=== PATIENT | female | born 1985 | race Caucasian/White ===

== ENCOUNTER 2017-05-29 12:55 | Inpatient (IN) | payer OTHER ==
[~2017-05-29 12:55] MED LIST: ELECTROLYTE-148 SOLN 1,000 ML IV SCH
[2017-05-29 13:33] VITALS: BMI 27.0
[2017-05-29] MEDS ORDERED: ceFAZolin SODIUM 1 GM VIAL ONE (14:02)
[2017-05-29] MEDS ORDERED: morphine SULFATE/Preservative Free 0.5 MG/ML (1cc Syringe) ONE (14:03)
[2017-05-29] MEDS ORDERED: ePHEDrine SULFATE 50 MG/1 ML AMPULE ONE (14:16)
[2017-05-29] MEDS ORDERED: OXYTOCIN 20 UNITS in 0.9% NS 20 UNIT/1,000 ML INFUS.BAG IV SCH (14:25)
[2017-05-29] MEDS ORDERED: OXYTOCIN 10 UNITS/ML VIAL ONE ×2 (14:27→14:52)
--- NOTE | 2017-05-29 15:01 | HP ---
Past Medical History - Primary Care Physician PCP:: Mario Grubbs - Admission Chief Complaint: 39 weeks , previous c/s , request of repeat c/s History of Present Illness: 32 yo f edc by sono 06/02 17 39 weeks with previous c/s request of repeat c/s , , cx clp, vx -3 ,mi , fhr cat 1, rba discussed , explained History Source: Patient Limitations to Obtaining History: Language Barrier - Past Medical History ...: 2 ...Para: 1 ...Term: 1 ...: 0 ...Spon : 0 ...Induced : 0 ...Multiple Gestation: 0 ...LMP: 08/30/16 ... Weeks Gestation by Dates: 38.6 ...EDC by Dates: 06/06/17 ...EDC by Sono: 06/02/17 - Past Surgical History Past Surgical History: Yes: Hx Myomectomy: No Hx Transabdominal Cerclage: No - Smoking History Smoking history: Never smoked - Alcohol/Substance Use Hx Alcohol Use: No History of Substance Use: reports: None - Social History Usual Living Arrangement: Yes: With Spouse History of Recent Travel: No Home Medications - Allergies Allergies/Adverse Reactions: Allergies Allergy/AdvReac Type Severity Reaction Status Date / Time No Known Allergies Allergy Verified 05/29/17 14:33 Review of Systems - Review of Systems Constitutional: reports: No Symptoms Eyes: reports: No Symptoms HENT: reports: No Symptoms Neck: reports: No Symptoms Cardiovascular: reports: No Symptoms Respiratory: reports: No Symptoms Gastrointestinal: reports: No Symptoms Genitourinary: reports: No Symptoms Breasts: reports: No Symptoms Reported Musculoskeletal: reports: No Symptoms Integumentary: reports: No Symptoms Neurological: reports: No Symptoms Endocrine: reports: No Symptoms Hematology/Lymphatic: reports: No Symptoms Psychiatric: reports: No Symptoms Physical Exam - Maternity Vital Signs: Vital Signs Temperature 98.1 F 05/29/17 13:21 Pulse Rate 93 H 05/29/17 13:21 Respiratory Rate 17 05/29/17 13:21 Blood Pressure 107/68 05/29/17 13:21 O2 Sat by Pulse Oximetry (%) Constitutional: Yes: Well Nourished, No Distress, Calm Eyes: Yes: WNL, Conjunctiva Clear, EOM Intact HENT: Yes: WNL, Atraumatic, Normocephalic Neck: Yes: WNL, Supple, Trachea Midline Cardiovascular: Yes: WNL, Regular Rate and Rhythm Breast(s): Yes: WNL - Abdominal Exam/OB Number of Fetuses: Single Presentation: Vertex Contractions: Yes Regularity: Irregular Intensity: Mild Monitor Mode: External Heart Rate Location: [facility] Category: I Accelerations: Uniform - Vaginal Exam/OB Vaginal Bleediing: No Dilatation (cm): 0 Effacement (%): 0 Amniotic Membrane Status: Intact Station: -3 - Physical Exam Edema: Yes Edema: LLE: Trace, RLE: Trace Deep Tendon Reflex Grade: Normal +2 Problem List - Problems (1) with 39 completed weeks gestation Code(s): Z3A.39 - 39 WEEKS GESTATION OF (2) Previous section Code(s): Z98.891 - HISTORY OF UTERINE SCAR FROM PREVIOUS SURGERY Assessment/Plan repeat c/s ,rba discussed
[2017-05-29] MEDS ORDERED: DEXAMETHASONE SOD PHOSPHATE 4 MG/1 ML VIAL ONE (15:03)
--- NOTE | 2017-05-29 15:52 | OP ---
DATE OF OPERATION: 05/29/2017 PREOPERATIVE DIAGNOSIS: , 39 weeks, previous section, requests a repeat section. POSTOPERATIVE DIAGNOSIS: , 39 weeks, previous section, requests a repeat section. PROCEDURE: Repeat low-segment transverse section. SURGEON: Aggie Grubbs MD COMPACTING MACHINE OPERATOR/TENDER: THOMAS Chao ANESTHESIA: Spinal. ANESTHESIOLOGIST: Casimiro Olmos MD ESTIMATED BLOOD LOSS: 500 mL FINDING: A live baby boy, Apgars 9 and 9, ROT position. OPERATING COURSE: Patient was taken to the operating room. Under adequate spinal anesthesia, abdomen and perineum were prepped and draped. Pfannenstiel abdominal skin incision was made. The abdominal wall was cut layer by layer until peritoneum was exposed and incised. There were some omental adhesions to the peritoneum which were lysed. Then, the lower uterine segment was identified and uterovesical fold of peritoneum established. Bladder was pushed down. Then, with the lower blade of the [place] retractor in the pelvis, a low transverse uterine incision was made. Incision extended laterally with bandage scissors. Amniotic sac was entered, clear fluid. Head delivered. Nasopharynx was suctioned, and live baby boy was delivered without any difficulty. Placenta was delivered manually. Uterine cavity was cleaned of all remaining tissue. Uterine incision was closed in 2 layers, first layer with 0 Biosyn continuous suture, then the second layer with 0 Biosyn imbricating the first layer. Bladder flap was closed with 0 Biosyn continuous suture. Both tubes and ovaries were checked, were normal. No active bleeding was seen. All the lap pads, sponge, and instrument counts were correct. Then, peritoneum was closed with 0 Biosyn continuous suture. Muscles were brought together with interrupted suture of 0 Biosyn. Fascia was closed with 0 Biosyn continuous suture, subcutaneous fat with interrupted suture of 0 Biosyn, and the skin was closed with mario. Patient tolerated the procedure well, left the OR in good condition. AGGIE GRUBBS M.D. /[id number]
[2017-05-29] MEDS ORDERED: morphine SULFATE/Preservative Free 0.5 MG/ML (1cc Syringe) SPIN ONE (16:45)
[2017-05-29] MEDS: ONDANSETRON 4 MG/2 ML VIAL IVPUSH PRN ×2 (18:00→22:17)
--- NOTE | 2017-05-30 07:17 | PN ---
Progress Note (short form) - Note Progress Note: pod 1, s/p repeat c/s doing well, no c/o Last Vital Signs Temp Pulse Resp BP Pulse Ox 98.5 F 88 20 105/60 97 05/30/17 05:00 05/30/17 05:00 05/30/17 06:00 05/30/17 05:00 05/29/17 19:10 abdomen soft, no distension, no cva incision dry, clean no calf tenderness plan ambulate , cbc advance diet Problem List - Problems (1) with 39 completed weeks gestation Code(s): Z3A.39 - 39 WEEKS GESTATION OF (2) Previous section Code(s): Z98.891 - HISTORY OF UTERINE SCAR FROM PREVIOUS SURGERY
[2017-05-30] MEDS: ENOXAPARIN NA (PORCINE) 40 MG/0.4 ML DISP.SYRIN SQ SCH (09:07)
[2017-05-30] MEDS: IBUPROFEN 600 MG TABLET (FP) PO PRN ×2 (11:49→21:05)
[2017-05-30] MEDS: ACETAMINOPHEN 325 MG TABLET (FP) PO PRN ×2 (11:51→21:06)
--- NOTE | 2017-05-30 14:57 | PN ---
Progress Note (short form) - Note Progress Note: Anesthesia post op note, POD#1, S/P under spinal with duramorph. Pat seen and examined. VSS.Pain well controlled,ambulating. No apparent post anesthesia complications. Signed off.
[2017-05-31] MEDS: IBUPROFEN 600 MG TABLET (FP) PO PRN ×4 (01:16→22:10)
[2017-05-31] MEDS: ACETAMINOPHEN 325 MG TABLET (FP) PO PRN ×4 (01:17→22:10)
--- NOTE | 2017-05-31 08:43 | PN ---
Post Progress Note - Subjective Subjective: c/o pain scale 5/10 voiding without difficulty Post Day: 2 Type of Delivery: Repeat C/S Vital Signs: Vital Signs Temperature 98.5 F 05/30/17 22:00 Pulse Rate 82 05/30/17 22:00 Respiratory Rate 20 05/30/17 22:00 Blood Pressure 107/71 05/30/17 22:00 O2 Sat by Pulse Oximetry (%) 98 05/30/17 21:00 Breast Exam: Yes: Soft, Other (attempting BF ). No: Engorged Uterus: Yes: Fundus Firm, Fundus below umbilicus, Non-tender Incision: Yes: [place] intact. No: Redness, Oozing Abdomen/GI: Yes: Abdomen soft, Passing flatus (bm not done ), Tolerating PO ( diet ). No: Abdominal Distention, Tender Lochia: Yes: Rubra Lochia, amount: Moderate Extremities: Yes: Calves non-tender Perineum: Yes: Intact Activity: Ambulating Assessment/Plan po c/s day #2 . po labs pending pt requests for discharge tomorrow.
[2017-05-31] MEDS: ENOXAPARIN NA (PORCINE) 40 MG/0.4 ML DISP.SYRIN SQ SCH (09:16)
[2017-05-31] MEDS ORDERED: DIPHTH,PERTUSS(ACELL),TET 0.5 ML DISP.SYRIN IM ONE (10:00)
[2017-05-31] MEDS ORDERED: FLU VACCINE QUAD 60 MCG/0.5 ML (MDV 17-18) IM ONE (10:00)
[2017-05-31] MEDS ORDERED: BISACODYL 10 MG SUPP.RECT RC ONE (16:30)
--- NOTE | 2017-06-01 08:31 | PN ---
Post Progress Note - Subjective Subjective: no c/o pain . . voiding without difficulty . bm done Post Day: 3 Type of Delivery: Repeat C/S Vital Signs: Vital Signs Temperature 98.9 F 05/31/17 20:25 Pulse Rate 77 05/31/17 20:25 Respiratory Rate 18 05/31/17 20:25 Blood Pressure 98/62 05/31/17 20:25 O2 Sat by Pulse Oximetry (%) 98 05/30/17 21:00 Breast Exam: Yes: Soft, Other (both bf & bottle feeding ). No: Engorged Uterus: Yes: Fundus Firm, Fundus below umbilicus, Non-tender Incision: Yes: [place] intact. No: Redness, Oozing Abdomen/GI: Yes: Abdomen soft, Passing flatus, Tolerating PO (diet). No: Abdominal Distention, Tender Lochia: Yes: Rubra Lochia, amount: Small Extremities: Yes: Calves non-tender Perineum: Yes: Intact Activity: Ambulating - Labs Labs: Laboratory Tests 06/01/17 06:00 WBC 7.7 RBC 4.12 Hgb 13.0 Hct 38.2 Plt Count 219 Assessment/Plan stable. post op cbc pending requests for discharge today
[2017-06-01 08:42] VITALS: BP 115/74; PULSE 68; TEMP 98.4
[2017-06-01 08:47] LABS: BASO % 0.2 % (0-2.0); HEMATOCRIT 38.2 % (32.4-45.2); LYMPH % 18.3 % (8-40); MCH 31.5 pg (25.7-33.7); MCHC 33.9 g/dl (32.0-36.0); MEAN CELL VOLUME 92.7 fl (80-96); MEAN PLT VOLUME 9.2 fl (7.5-11.1); MONO % 8.1 % (3.8-10.2); NEUT % 71.4 % (42.8-82.8); PLATELET COUNT 219 K/MM3 (134-434); RBC 4.12 M/mm3 (3.60-5.2); RDW 14.5 % (11.6-15.6); WHITE BLOOD COUNT 7.7 K/mm3 (4.0-10.0)
[2017-06-01] MEDS: IBUPROFEN 600 MG TABLET (FP) PO PRN (09:20)
[2017-06-01] MEDS: ENOXAPARIN NA (PORCINE) 40 MG/0.4 ML DISP.SYRIN SQ SCH (09:20)
[2017-06-01] MEDS: ACETAMINOPHEN 325 MG TABLET (FP) PO PRN (09:21)
--- NOTE | 2017-06-05 15:34 | DS ---
Physical Exam-COD CLERK Vital Signs: Vital Signs Temperature 98.4 F 06/01/17 08:40 Pulse Rate 68 06/01/17 08:40 Respiratory Rate 20 06/01/17 08:40 Blood Pressure 115/74 06/01/17 08:40 O2 Sat by Pulse Oximetry (%) 98 05/30/17 21:00 Constitutional: Yes: Well Nourished, No Distress, Calm Eyes: Yes: WNL, Conjunctiva Clear, EOM Intact HENT: Yes: WNL, Atraumatic, Normocephalic Neck: Yes: WNL, Supple, Trachea Midline Cardiovascular: Yes: WNL, Regular Rate and Rhythm Respiratory: Yes: WNL, Regular, CTA Bilaterally Gastrointestinal: Yes: WNL ...Rectal Exam: Yes: WNL Renal/: Yes: WNL ....Post : Yes: Uterus firm, Uterus non-tender, Slight lochia rubra Breast(s): Yes: WNL Musculoskeletal: Yes: WNL Extremities: Yes: WNL Edema: No Integumentary: Yes: WNL Wound/Incision: Yes: Clean/Dry, Well Approximated, [place] Intact Neurological: Yes: WNL, Alert, Oriented ...Motor Strength: WNL Psychiatric: Yes: WNL, Alert, Oriented Labs: CBC, BMP 06/01/17 06:00 Delivery - Delivery Section: Repeat (no complication), Low Flap Transverse Type of Anesthesia: Spinal Episiotomy/Laceration: None EBL (cc): 500 Delivery, Single - Stages of Labor Date of Delivery: 05/29/17 Time of Delivery: 14:27 Time Placenta Delivered: 14:28 Placenta: Yes: Expressed - Condition of Infant Industrial Court Magistrate/Utility Division Project Manager Present: Yes Name: Tim Mello Infant Gender: Male Weight: 7 lb 8 oz Position: Right, OT Total Hours ROM (Hrs/Mins): 0Hrs/2Mins - 5 Minutes Total Score: 9 1 Minute Total Score: 9 - Feeding Plan Initial Plan: Elected not to breastfeed exclusively throughout hospitalization Discharge Summary Reason For Visit: Procedures: Principal: repeat LST c/s Hospital Course: no complication Condition: Stable - Instructions Diet, Activity, Other Instructions: Discharge Instructions * Out of Bed * * Regular Diet * Huma Care * Avoid sex for 6 weeks * RTC [address] Grubbs for mario removal If you experience excessive bleeding or fever over 101 degrees, call doctor, the clinic or go to the Emergency Room. call [facility] for mario removal on 06/05/17. [phone] Referrals: Mario Grubbs MD [Staff Physician] - Disposition: HOME - Home Medications Comprehensive Discharge Medication List: Ambulatory Orders Acetaminophen [Tylenol .Regular Strength -] 500 mg PO Q4H PRN #30 tablet Ibuprofen [Motrin -] 600 mg PO Q4H PRN #30 tablet 05/31/17
--- NOTE | 2017-06-06 09:27 | PATH ---
Surgical Pathology Report Patient Name: OZZY FINNEY Med. Rec. #: [id number] /Age/Gender: 1985 (Age: 32) / F Account: [id number] Location: [facility] OBS/SENIOR MATERIALS SCIENTIST Taken: 05/29/2017 Received: 05/30/2017 Reported: 06/06/2017 Physicians: Mario Grubbs M.D. Specimen(s) Received PLACENTA Clinical History for repeat Final Diagnosis PLACENTA, DELIVERY: FOCALLY DISRUPTED THIRD TRIMESTER PLACENTA WITH THREE VESSEL UMBILICAL CORD AND UNREMARKABLE PLACENTAL MEMBRANES. Electronically Signed Han Washington M.D. Gross Description The specimen is received fresh labeled placenta and is a 481 gram, 19.0 x 18.5 x 2.0 cm. placenta with attached membranes and umbilical cord. The attached membranes are garcia, translucent with focal opacities and insert marginally. The umbilical cord measures 25 cm. in length and averages 1 cm. in diameter. The cord inserts eccentrically, 5.5 cm. to the nearest margin. No true knots or strictures are identified. Cut surface of the umbilical cord reveals 3 vessels. The surface is martines-blue with minimal fibrin deposition and appropriate caliber vessels. The maternal surface is red-brown with focal defects. Sectioning reveals red-brown, spongy parenchyma. No lesions are identified. Patient Care Director sections are submitted in three cassettes as follows: 1- membrane rolls and umbilical cord; 2-3- full thickness sections of placenta. /06/03/2017 [facility]06/03/2017
== END 2017-06-01 14:00 | disposition home or self-care (01) | DRG 540 ==
LOC: JLDR 12:55 → J3W 17:40
PROVIDERS: ADMIT Obstetrics & Gynecology; ATTEND Obstetrics & Gynecology
PROC: 10D00Z1 Extraction of Products of Conception, Low, Open Approach (ICD-10-PCS; principal; 2017-05-29)
PROC: 0DNW0ZZ Release Peritoneum, Open Approach (ICD-10-PCS; 2017-05-29)
DX: O34.211 Maternal care for low transverse scar from previous cesarean delivery (principal); O99.62 Diseases of the digestive system complicating childbirth; K66.0 Peritoneal adhesions (postprocedural) (postinfection); Z3A.39 39 weeks gestation of pregnancy; Z37.0 Single live birth
CPT/HCPCS: 36415; 85025; 90688; 90715; G0008

== ENCOUNTER 2021-05-17 05:12 | Day surgery (SDC) | payer OTHER ==
[2021-05-14 12:42] VITALS: BMI 22.8
[2021-05-17 09:45] VITALS: TEMP 98
[2021-05-17 10:06] VITALS: BP 95/59; PULSE 60
== END 2021-05-17 11:00 | disposition home or self-care (01) ==
LOC: JASU-ENDO 05:12
PROVIDERS: ATTEND Internal Medicine Gastroenterology
PROC: 0DJD8ZZ Inspection of Lower Intestinal Tract, Via Natural or Artificial Opening Endoscopic (ICD-10-PCS; principal; 2021-05-17 09:00)
DX: R19.4 Change in bowel habit (principal); K64.8 Other hemorrhoids
CPT/HCPCS: 81025